=== PATIENT | male | born 1950 | race Caucasian/White ===

== ENCOUNTER 2021-06-06 06:04 | Outpatient (CLI) | payer OTHER ==
[2021-06-06] VITALS (16 sets, daily range): BP systolic 107–131; BP diastolic 58–84; PULSE 73–81; TEMP 98.4
[~2021-06-06] VITALS: Ht 180.3 cm; Wt 113.5 kg
[~2021-06-06 06:04] MED LIST: ASPIRIN 81M81 MG/TA2 PO; ATARAX 25MG25 MG/TAB PO; COREG 25MG25 MG/TAB PO; CRESTOR20 MG PO; DIABETA 5MG5 MG/TAB PO; FLEXERIL 1010 MG/TAB PO; GLUCOPHAGE850 MG/TAB PO; NATURE'S BLEND M3 MG PO; NESINA25 PO; ONE-A-DAY ESSE1 EACH PO; ZESTRIL 20MG TA20 MG PO
--- NOTE | 2021-06-06 08:40 | NUR ---
PT WAS MOVING HIS PULSE OX AND IT WAS COMING OFF HIS FINGER
--- NOTE | 2021-06-06 11:45 | NUR ---
Pt has been cleared for discharge by Dr. Blank. Pt has been up and amb to br with steady gait, unlabored respirations at time of departure. Pt continues to deny any pain with inspiration etc. IV dc'd with cath intact, dressing applied. I reviewed dc instructions with pt, no questions at time of departure. To exit via wheelchair.
== END 2021-06-06 18:43 | disposition home or self-care (01) ==
LOC: COL.RAD 06:04
DX: R91.1 Solitary pulmonary nodule (principal)
CPT/HCPCS: J2250; J3010